=== PATIENT | female | born 1995 | race Caucasian/White ===

== ENCOUNTER 2022-05-18 16:19 | Emergency (ER) | payer BC ==
[2022-05-18] MEDS ORDERED: Sodium Chloride 0.9% 10 ML Syringe FLUSH PRN (17:18)
[2022-05-18] MEDS ORDERED: Ondansetron 4 MG/2 ML SDV IVPUSH ONE (17:18)
[2022-05-18] MEDS ORDERED: HYDROmorphone 1 MG/ML Syringe IVPUSH ONE ×2 (17:20→19:34)
[2022-05-18] MEDS ORDERED: Sodium Chloride 0.9% 1,000 ML IV SCH (17:30)
[2022-05-18] MEDS ORDERED: Sodium Chloride 0.9% 10 ML Syringe FLUSH ONE (17:38)
[2022-05-18] MEDS ORDERED: Iopamidol 612 MG/ML 100 ML Bottle IVPUSH ONE (17:38)
[2022-05-18] MEDS ORDERED: HYDROmorphone 1 MG/ML Syringe ONE (20:04)
== END 2022-05-18 20:55 | disposition home or self-care (01) ==
LOC: JD.ED 16:19
DX: K85.80 Other acute pancreatitis without necrosis or infection (principal); G89.18 Other acute postprocedural pain; Z88.0 Allergy status to penicillin; Z79.899 Other long term (current) drug therapy
CPT/HCPCS: 36415; 74177; 80053; 81001; 83690; 84703; 85025; 96374; 96375; 96376; 99284; J1170; J2405; J3490; J7030